=== PATIENT | female | born 1965 | race Caucasian/White ===

== ENCOUNTER 2017-03-20 10:20 | Inpatient (IN) | payer OTHER ==
[~2017-03-20] VITALS: Ht 170.2 cm; Wt 79.7 kg
[~2017-03-20 10:20] MED LIST: ADVIL200 M3; ALPRAZOLAM1 MG PO; AMBIEN10 M1 PO; ASPIR-LOW81 MG PO; Ambien PO; Anaprox DS PO; BENADRYL25 MG PO; CEPHALEXIN500 MG PO; CLONAZEPAM0.5 MG PO; CYMBALTA60 MG PO; Cymbalta PO; DEXTROAMP-AMPHE30 MG PO; DILAUDID4 MG PO; EFFEXOR XR150 MG PO; EFFEXOR75 MG PO; Effexor XR PO; FENTANYL1 EAC2 TD; Flexeril PO; GABAPENTIN100 MG PO; GABAPENTIN600 MG PO; GLUCOPHAGE1000 MG PO; IBUPROFEN800 MG PO; Kadian PO; KlonoPIN PO; LANTUS 10100 UNITS/ SC; LEVOTHYROXINE75 MCG PO; LIPITOR40 MG PO; LITHIUM; LITHIUM CARBON300 M2 PO; METFORMIN HCL1000 M1 PO; MOTRIN IB200 MG; MOTRIN800 MG PO; NEURONTIN100 MG PO; NEXIUM40 MG PO; NOVOLOG PE100 UNITS/ SC; PERCOCET 5/31 TABLET PO; PREDNISONE10 M1 PO; TIZANIDINE HCL4 MG PO; TRAZODONE HCL100 MG PO; TYLENOL 8 HOUR650 MG; TYLENOL EXTRA500 MG; VENLAFAXINE HC150 M1 PO; VENLAFAXINE HCL75 M3 PO; VENTOLIN HFA18 GM IH
[2017-03-20 13:58] LABS: BASOPHIL COUNT 0.2 K/uL (0-0.1); EOSINOPHIL (%) 0.8 % (0-5); EOSINOPHIL COUNT 0.3 K/uL (0-0.3); IMMATURE GRANULOCYTE (%) 0.7 % (0.0-0.7); IMMATURE GRANULOCYTE COUNT 0.2 K/uL; INSTRUMENT ABS NEUTROPHIL CT 24.6 K/uL; LYMPHOCYTE COUNT 6.2 K/uL (1.0-2.8); MEAN PLAT.VOLUME 9.5 uM^3 (9.5-12.4); MONOCYTE (%) 7.5 % (3-12); MONOCYTE COUNT 2.6 K/uL (0-0.8); NEUTROPHIL (%) 72.2 % (45-76); NEUTROPHIL COUNT 24.6 K/uL (1.8-6.4); PLATELET COUNT 575 K/uL (156-360)
[2017-03-20 14:02] LABS: HEMATOCRIT 40.9 % (36.0-46.0); MCH 30.7 PG (29.0-34.0); MCHC 33.5 G/DL (30.0-36.0); MCV 91.7 FL (83-99); RBC DIS.WIDTH-CV 13.8 % (11.8-14.6); RBC DIS.WIDTH-SD 46.9 % (39-53); RED BLOOD COUNT 4.46 M/uL (3.80-5.20); WHITE BLOOD COUNT 34.3 K/uL (4.1-10.2)
[2017-03-20 14:11] LABS: CHLORIDE 100 mEq/L (99-109); POTASSIUM 3.9 mEq/L (3.7-5.4); SODIUM 131 mEq/L (136-147)
[2017-03-20 14:13] LABS: GLUCOSE 165 mg/dL (70-99)
[2017-03-20 14:14] LABS: ANION GAP 10 MEQ/L (2-14)
[2017-03-20 14:16] LABS: GFR ESTIMATE (CALCULATED) 55 mL/min/
[2017-03-20 14:17] LABS: UREA NITROGEN (BUN) 9 mg/dL (9-23)
[2017-03-20 14:24] LABS: ERTH.SED.RATE 34 MM/HR (0-30)
[2017-03-20 15:05] LABS: C-REACTIVE PROTEIN 37.3 MG/L (0-10)
[2017-03-20 16:32] LABS: ADD MIUA? YES; BILIRUBIN NEGATIVE; BLOOD NEGATIVE; COLOR STRAW ((YELLOW)); GLUCOSE (STRIP) NEGATIVE; KETONES NEGATIVE; LEUKOCYTES SMALL; NITRITE NEGATIVE; PROTEIN (STRIP) NEGATIVE; SPECIFIC GRAVITY 1.004 (1.000-1.030); UROBILINOGEN 0.2 MG/DL (0.2-1.0)
[2017-03-20 16:38] LABS: BACTERIA RARE /HPF; EPITHELIAL CELLS 1+ /HPF; MUCUS NONE SEEN /LPF; RED BLOOD CELLS 0-5 /HPF (0-5); WHITE BLOOD CELLS 0-5 /HPF (0-5)
[2017-03-20 18:04] LABS: ATYPICAL LYMPHOCYTE 3.5 %; EOSINOPHILS 1.7 % (0-5.0); LYMPHOCYTES 20.9 % (15.0-45.0); MYELOCYTES 0.9 %; PLAT.SUFFICIENCY ADEQUATE; SEG.NEUTROPHILS 67.8 % (46.0-76.0); SMUDGE CELLS 10.4
[2017-03-20] MEDS ORDERED: VENLAFAXINE HCL75 M3 PO (19:34)
[2017-03-20] MEDS ORDERED: HYDROMORPHONE HC8 MG PO (19:34)
[2017-03-20 23:15] VITALS: BP 106/64
[2017-03-21 03:53] VITALS: BP 100/57
[2017-03-21 06:46] LABS: HEMATOCRIT 39.5 % (36.0-46.0); MCH 30.6 PG (29.0-34.0); MCHC 32.7 G/DL (30.0-36.0); MCV 93.6 FL (83-99); MEAN PLAT.VOLUME 10.5 uM^3 (9.5-12.4); PLATELET COUNT 583 K/uL (156-360); RBC DIS.WIDTH-CV 14.1 % (11.8-14.6); RBC DIS.WIDTH-SD 48.8 % (39-53); RED BLOOD COUNT 4.22 M/uL (3.80-5.20); WHITE BLOOD COUNT 23.8 K/uL (4.1-10.2)
[2017-03-21 07:08] LABS: ANION GAP 8 MEQ/L (2-14); CHLORIDE 105 MEQ/L (99-109); GFR ESTIMATE (CALCULATED) > 59 mL/min/; POTASSIUM 4.6 MEQ/L (3.7-5.4); SAMPLE HEMOLYSIS CHECK 0; SAMPLE ICTERIC CHECK 0; SAMPLE LIPEMIA CHECK 0; SODIUM 134 MEQ/L (136-147); UREA NITROGEN (BUN) 9 mg/dL (9-23)
[2017-03-21 07:18] LABS: GLUCOSE 314 mg/dL (70-99)
[2017-03-21 07:35] VITALS: BP 117/63
[2017-03-21 07:43] LABS: Estimated Average Glucose 143 mg/dL (70-123); HEMOGLOBIN A1c (GLYCOHEMOGLOB) 6.6 % HGB (Below 5.7)
[2017-03-21 12:01] LABS: POINT-OF-CARE METER ID UU13113725
[2017-03-21 16:17] LABS: POINT-OF-CARE METER ID UU13113725
[2017-03-21 16:31] VITALS: BP 110/63
[2017-03-21 20:17] VITALS: BP 163/81
[2017-03-21 23:03] VITALS: BP 128/76
[2017-03-22 07:11] LABS: BASOPHIL COUNT 0.1 K/uL (0-0.1); EOSINOPHIL (%) 0 % (0-5); IMMATURE GRANULOCYTE (%) 1.1 % (0.0-0.7); IMMATURE GRANULOCYTE COUNT 0.4 K/uL; INSTRUMENT ABS NEUTROPHIL CT 29.1 K/uL; LYMPHOCYTE COUNT 3.8 K/uL (1.0-2.8); MEAN PLAT.VOLUME 10.8 uM^3 (9.5-12.4); MONOCYTE (%) 3.8 % (3-12); MONOCYTE COUNT 1.3 K/uL (0-0.8); NEUTROPHIL COUNT 29.1 K/uL (1.8-6.4); PLATELET COUNT 545 K/uL (156-360)
[2017-03-22 07:15] LABS: HEMATOCRIT 38.7 % (36.0-46.0); MCH 31.6 PG (29.0-34.0); MCHC 33.6 G/DL (30.0-36.0); MCV 94.2 FL (83-99); RBC DIS.WIDTH-CV 14.4 % (11.8-14.6); RBC DIS.WIDTH-SD 49.7 % (39-53); RED BLOOD COUNT 4.11 M/uL (3.80-5.20)
[2017-03-22 07:18] LABS: WHITE BLOOD COUNT 34.7 K/uL (4.1-10.2)
[2017-03-22 07:36] LABS: ANION GAP 11 MEQ/L (2-14); C-REACTIVE PROTEIN 44.9 MG/L (0-10); CHLORIDE 104 MEQ/L (99-109); GFR ESTIMATE (CALCULATED) > 59 mL/min/; GLUCOSE 250 mg/dL (70-99); MAGNESIUM 2.2 mg/dl (1.3-2.7); POTASSIUM 4.8 MEQ/L (3.7-5.4); SAMPLE HEMOLYSIS CHECK 0; SAMPLE ICTERIC CHECK 0; SAMPLE LIPEMIA CHECK 0; SODIUM 136 MEQ/L (136-147); UREA NITROGEN (BUN) 9 mg/dL (9-23)
[2017-03-22 07:50] VITALS: BP 131/84
[2017-03-22 07:50] LABS: ERTH.SED.RATE 36 MM/HR (0-30)
[2017-03-22] MEDS ORDERED: PREDNISONE10 MG PO (09:26)
[2017-03-22 10:04] VITALS: BP 131/84
== END 2017-03-22 12:30 | disposition home or self-care (01) | DRG 554 ==
LOC: EME 10:20 → RME 10:20 → 5EAST 20:35 → EDOF 20:35 → ENRESERV 20:36 → 5EAST 22:30 → ENPENDDIS 03-22 → 5EAST 03-22 12:30
PROVIDERS: Emergency Medicine; Hospitalist; Internal Medicine; Physician Assistant
DX: M06.4 Inflammatory polyarthropathy (principal); E11.40 Type 2 diabetes mellitus with diabetic neuropathy, unspecified; E11.65 Type 2 diabetes mellitus with hyperglycemia; C91.11 Chronic lymphocytic leukemia of B-cell type in remission; J44.9 Chronic obstructive pulmonary disease, unspecified; K21.9 Gastro-esophageal reflux disease without esophagitis; D72.829 Elevated white blood cell count, unspecified; E78.5 Hyperlipidemia, unspecified; M19.90 Unspecified osteoarthritis, unspecified site; Z87.891 Personal history of nicotine dependence; Z79.82 Long term (current) use of aspirin; Z79.84 Long term (current) use of oral hypoglycemic drugs; Z79.899 Other long term (current) drug therapy; Z80.3 Family history of malignant neoplasm of breast; Z90.81 Acquired absence of spleen; Z79.4 Long term (current) use of insulin; R68.83 Chills (without fever); M24.342 Pathological dislocation of left hand, not elsewhere classified
CPT/HCPCS: 73130; 80048; 81003; 82948; 83036; 83735; 85007; 85025; 85027; 85651; 86140; 99202; 99281; 99285; J1170; J1644; J1815; J1885; J2270; J2920; J2930; J7030; J7050; S0028

== ENCOUNTER 2017-05-07 09:48 | Emergency (ER) | payer OTHER ==
[~2017-05-07] VITALS: Ht 170.2 cm; Wt 83.3 kg
[~2017-05-07 09:48] MED LIST changes: +HYDROMORPHONE HC8 MG PO; +PREDNISONE10 MG PO
[2017-05-07] MEDS ORDERED: MOTRIN600 MG PO (13:51)
[2017-05-07 14:12] VITALS: BP 121/87
== END 2017-05-07 14:13 | disposition home or self-care (01) ==
LOC: EME 09:48
DX: S39.012A Strain of muscle, fascia and tendon of lower back, initial encounter (principal); S70.12XA Contusion of left thigh, initial encounter; W18.30XA Fall on same level, unspecified, initial encounter; M06.9 Rheumatoid arthritis, unspecified; F17.200 Nicotine dependence, unspecified, uncomplicated
CPT/HCPCS: 73502; 99281; 99284